=== PATIENT | female | born 1965 | race Caucasian/White ===

== ENCOUNTER 2019-07-20 11:43 | Day surgery (SDC) | payer BC ==
[~2019-07-20] VITALS: Ht 165.1 cm; Wt 90.3 kg
--- NOTE | ~2019-07-20 | OR ---
[facility] [address], [place] [address] Draft DATE OF OPERATION: 07/20/2019 SURGEON: Keron Hickey MD PREOPERATIVE DIAGNOSES: 1. Family history of colon cancer (father). 2. Screening colonoscopy procedure findings. POSTOPERATIVE DIAGNOSES: 1. Extensive diverticular changes. 2. Two hyperplastic polyps of rectosigmoid (excised). PROCEDURE PERFORMED: Total colonoscopy to cecum with cold morcellation polypectomy x2. ANESTHESIA: Intravenous sedation, fentanyl 150 mcg, and Versed 7 mg. INDICATION: This 54-year-old white woman is a patient Dr. Le and has family history of colon cancer in her father who of the disease at age 60. She is symptom free having no bleeding, diarrhea, or constipation problems. She is admitted at this time to undergo screening colonoscopy understanding the risks of bleeding, infection, perforation, and so on. FINDINGS: The prep was excellent. Complete colonoscopy was undertaken to the cecum. There were numerous diverticula. There were 2 small hyperplastic polyps to the rectosigmoid, both excised. DESCRIPTION OF PROCEDURE: The patient was brought to the endoscopy suite and placed in lateral decubitus position given intravenous sedation to the point of slurred speech and nystagmus. Digital rectal examination was normal. An Olympus video colonoscope was passed in the rectum and manipulated throughout the colon noting diverticula of the sigmoid and left colon. Scope was ultimately advanced to the cecum. The ileocecal valve and appendiceal orifice were normal. Irrigation was undertaken as needed. The scope was carefully withdrawn. Upon withdrawal of scope, no sign of abnormality were noted other than the diverticula until the rectosigmoid where there were 2 small hyperplastic polyps. Narrow band imaging confirmed the appearance. These were excised x2 and passed for pathology. PATIENT NAME: KIMMY TRAN OPERATIVE REPORT DATE OF : 61 REPORT #: [id number] PHYSICIAN: KERON HICKEY MD PCP: NO PRIMARY CARE PHYSICIAN REPORT IS CONFIDENTIAL AND NOT TO BE RELEASED WITHOUT AUTHORIZATION [facility] [address] [place] [id number] Draft Retroflexed view of the rectum was normal. Scope was removed. The patient was taken to recovery room in good condition. CONCLUDING DIAGNOSES: 1. Diverticulosis. 2. Hyperplastic polyps of the rectosigmoid x2. PLAN: Recommend repeat colonoscopy in 5 years, mostly based on family history. Colonoscopy sooner should be undertaken if there are problems. She will return to the ongoing care of Dr. Le. MD MISSAEL Villalobos/SHARMILA /[id number] cc: Dr. Le Copies: ~ PATIENT NAME: KIMMY TRAN OPERATIVE REPORT DATE OF : 61 REPORT #: [id number] PHYSICIAN: KERON HICKEY MD PCP: NO PRIMARY CARE PHYSICIAN REPORT IS CONFIDENTIAL AND NOT TO BE RELEASED WITHOUT AUTHORIZATION
[~2019-07-20 11:43] MED LIST: LISINOPRIL10 MG PO
[2019-07-20] MEDS ORDERED: LISINOPRIL20 MG PO (12:10)
[2019-07-20] MEDS ORDERED: ROSUVASTATIN CA10 MG PO (12:10)
--- NOTE | 2019-07-20 14:24 | NUR ---
07/20/19 1424 Grisel Ochoa 1421 PATIENT ARRIVES TO PACU AWAKE. DENIES PAIN OR NAUSEA. RESP EVEN AND UNLABORED, ROOM AIR SATS >90%.
--- NOTE | 2019-07-21 14:02 | PATH ---
[facility] [address] [id number] Signed SPECIMEN(S): A RECTOSIGMOID POLYPS SPECIMEN SOURCE: A. RECTOSIGMOID POLYPS CLINICAL HISTORY: Screening. MICROSCOPIC DESCRIPTION: Histologic sections of all submitted blocks are examined by light microscopy. These findings, together with the gross examination, support the pathologic diagnosis. FINAL PATHOLOGIC DIAGNOSIS: Mucosa, rectosigmoid region, biopsy: - Hyperplastic polyp. LJA:cml:C2NR GROSS DESCRIPTION: The specimen, labeled "DS, rectosigmoid hyperplastic polyp," is received in formalin and consists of three lynne-white soft tissue fragments ranging from 0.2-0.3 cm in greatest dimension. The specimen is entirely submitted in cassette (A1). AR (under the direct supervision of a pathologist) The Gross Description was prepared using a voice recognition system. The report was reviewed for accuracy; however, sound-alike word errors, addition and/or deletions may occur. If there is any question about this report, please contact Client Services. PERFORMING LABORATORY: The technical component was performed by [facility], [address] [place] [id number] (Chocolate Packer: Jessika Lozada MD; CLIA# [id number]). [facility], [address] [address] (Chocolate Packer: Yonny Diaz MD; CLIA# [id number]). Diagnostician: Yonny Diaz MD Pathologist Electronically Signed 07/21/2019 PATIENT NAME: KIMMY TRAN PATHOLOGY DATE OF : 61 REPORT #: [id number] PHYSICIAN: [facility] PATHOLOG[facility] PCP: NO PRIMARY CARE PHYSICIAN REPORT IS CONFIDENTIAL AND NOT TO BE RELEASED WITHOUT AUTHORIZATION [address] [address] Signed Copies: ~ PATIENT NAME: KIMMY TRAN PATHOLOGY DATE OF : 61 REPORT #: [id number] PHYSICIAN: [facility] PATHOLOG[facility] PCP: NO PRIMARY CARE PHYSICIAN REPORT IS CONFIDENTIAL AND NOT TO BE RELEASED WITHOUT AUTHORIZATION
== END 2019-07-20 14:50 | disposition home or self-care (01) ==
LOC: DS 11:43 → OPS 11:43 → DS 13:00 → OPS 14:50
PROVIDERS: Surgery
PROC: 0DBN8ZZ Excision of Sigmoid Colon, Via Natural or Artificial Opening Endoscopic (ICD-10-PCS; principal; 2019-07-20 13:00)
DX: Z12.11 Encounter for screening for malignant neoplasm of colon (principal); K63.5 Polyp of colon; K57.30 Diverticulosis of large intestine without perforation or abscess without bleeding; I10 Essential (primary) hypertension; E66.9 Obesity, unspecified; Z80.0 Family history of malignant neoplasm of digestive organs; Z68.33 Body mass index [BMI] 33.0-33.9, adult; Z85.828 Personal history of other malignant neoplasm of skin
CPT/HCPCS: 99153; G0500; J2250; J3010; J7120